=== PATIENT | male | born 1970 | race Two or more races ===

== ENCOUNTER 2018-11-24 02:28 | Inpatient (IN) | payer MEDICAID ==
[~2018-11-24] VITALS: Ht 167.6 cm; Wt 68.4 kg
[~2018-11-24 02:28] MED LIST: LEVE250T28 PO; METO25TA35 PO
--- NOTE | 2018-11-24 02:51 | NUR ---
PT. TO CT VIA [facility].
--- NOTE | 2018-11-24 02:53 | NUR ---
[place]; FOUND IN THE STREET. PT. NOTED TO HAVE DRIED BLOOD IN MOUTH AND URINE INCONTINENCE. PT. IS ITALIAN SPEAKING ONLY. PT. UNABLE TO COMMUNICATE EVEN WITH TRIMMING MACHINE OPERATOR. PT. A&O TO SELF ONLY. THOMAS X 4 EQUALLY. BRUISING NOTED TO TONGUE. PT. WAS UNABLE TO ANSWER QUESTIONS USING TRIMMING MACHINE OPERATOR # [id number]. PT. WAS ABLE TO ANSWER QUESTIONS BY ITALIAN SPEAKING STAFF AND PT. DENIES ANY MEDICAL HX, ETOH USE TONIGHT, DRUG USE, OR RECOLLECTION OF EVENTS. PT. DENIES PAIN/DISCOMFORT. WHEN LOOKIG BACK IN THE CHART HISTORY PT. HAS BEEN ADMITTED FOR SEZIURES A COUPLE TIMES IN THE PAST. PT. HAD EKG COMPLETED ON ARRIVAL. CONTINUOUS PULSE OX, B/P, AND HEART MONITORS APPLIED. IV IN PLACE BY KAE. CALL LIGHT IN REACH. ALL SAFETY MEASURES OBSERVED.
--- NOTE | 2018-11-24 03:03 | NUR ---
SEZIURE PADS/PRECAUTIONS IN PLACE.
[2018-11-24 03:10] LABS: BASOPHILS # (AUTO) 0.02 x10^3/uL (0-0.1); BASOPHILS % (AUTO) 0 % (0-1); EOSINOPHILS % (AUTO) 0 % (1-7); LYMPHOCYTES # (AUTO) 0.35 x10^3/uL (1-3.4); LYMPHOCYTES % (AUTO) 6 % (22-44); MD NO; MEAN CORPUSCULAR HEMOGLOBIN 32.6 pg (27.5-34.5); MEAN CORPUSCULAR HGB CONC 32.3 g/dL (33.2-36.2); MEAN CORPUSCULAR VOLUME 100.8 fL (81-97); MEAN PLATELET VOLUME 7.6 fL (7.4-10.4); MONOCYTES # (AUTO) 0.44 x10^3/uL (0.2-0.8); MONOCYTES % (AUTO) 8 % (2-9); NEUTROPHILS # (AUTO) 4.79 x10^3/uL (1.8-6.8); NEUTROPHILS % (AUTO) 86 % (42-75); PLATELET COUNT 121 x10^3/uL (130-400); RED BLOOD COUNT 3.67 x10^6/uL (4.38-5.82); RED CELL DISTRIBUTION WIDTH 17.1 % (9.4-14.8)
[2018-11-24] MEDS ORDERED: ACETAMINOPHEN 500 MG TABLET ONE (03:16)
[2018-11-24 03:22] LABS: ALANINE AMINOTRANSFERASE 58 U/L (12-78); ALBUMIN 3.3 g/dL (3.4-5.0); ANION GAP 12 mmol/L (5-15); CALCIUM 8.9 mg/dL (8.5-10.1); CHLORIDE 102 mmol/L (98-107); CREATININE 1.25 mg/dL (0.7-1.3)
[2018-11-24 03:27] LABS: ALKALINE PHOSPHATASE 133 U/L (45-117); BILIRUBIN,TOTAL 0.8 mg/dL (0.2-1.0); TOTAL PROTEIN 8.2 g/dL (6.4-8.2); TROPONIN I < 0.015 ng/mL (0.000-0.045)
[2018-11-24] MEDS ORDERED: ACETAMINOPHEN 500 MG TABLET PO ONE (03:30)
--- NOTE | 2018-11-24 03:34 | NUR ---
BLOOD CULTURES DRAWN X 2. PT. O2 SAT DROPEED TO 80'S; PLACED ON 2L O2 VIA NC WITH INCREASE TO 97%. NADN. PT. HAS TV ON AND APPEARS TO BE WATCHING TV. PT. CONTINUES TO THOMAS X 4. NO NEURO CHANGES NOTED. ALL SAFETY MEASURES/SEZIURE PRECATUIONS REMAIN IN PLACE. CALL LIGHT IN REACH.
--- NOTE | 2018-11-24 04:17 | NUR ---
THIS RN AND ERP ATTEMPED TO RE-ASSESS PT. WITH ACCREDITED LEGAL SECRETARY; PT. UNABLE TO COMMUNICATE WITH STAFF VIA [facility](PT. JUST LOOKS AROUND THE ROOM AND APPEAERS TO BE CONFUSED WITH THIS). [place]ELI SPEAKING STAFF MEMBER IN TO HELP INTERPRET. PT. REMAINS ONLY A&O TO SELF ONLY BUT KNOWS HE IS IN [place]. NO CHANGE FROM INITIAL ASSESSMENT.
[2018-11-24] MEDS ORDERED: PIPERACILLIN/TAZO/PMX 3.375GM 50 ML IVPB ONE (04:30)
[2018-11-24] MEDS ORDERED: SODIUM CHLORIDE 0.9% 1,000ML IVBOLUS ONE (04:30)
[2018-11-24] MEDS ORDERED: VANCOMYCIN PER PHARMACY IV ONE (04:30)
[2018-11-24] MEDS ORDERED: VANCOMYCIN 1,400 MG in SODIUM CHLORIDE 0.9% 250 ML IV ONE (04:30)
--- NOTE | 2018-11-24 04:43 | NUR ---
HANDED PT. URINAL; PT. ATTEMPTED TO VOID VIA URINAL BUT WAS UNABLE. URINAL REMAINS AT BS; PT. DID NOD HEAD FOR UNDERSTANDING OF NEED FOR URINE SAMPLE.
[2018-11-24] MEDS ORDERED: PIPERACILLIN/TAZO/PMX 3.375GM 50 ML ONE (04:49)
--- NOTE | 2018-11-24 05:07 | NUR ---
IVF AND IV ABX INFUSING PER ORDER. PT. STATUS REMAINS UNCHANCED FROM INITIAL ASSESSMENT.
--- NOTE | 2018-11-24 05:20 | NUR ---
REPORT TO GAURAV COURTNEY. FLOOR READY FOR PT. TRANSPORT.
[2018-11-24 07:59] VITALS: BP 138/78
[2018-11-24] MEDS: SODIUM CHLORIDE 0.9% 1,000 ML IV SCH (11:47)
[2018-11-24] MEDS ORDERED: ONDANSETRON ODT 4 MG PO PRN (12:00)
[2018-11-24] MEDS ORDERED: LORazepam 2 MG/ML, 1ML IV PRN ×5 (12:00)
[2018-11-24] MEDS ORDERED: POLYETHYLENE GLYCOL 17 GM PACKET PO PRN (12:00)
[2018-11-24] MEDS ORDERED: DOCUSATE 100 MG CAPSULE PO PRN (12:00)
[2018-11-24] MEDS ORDERED: hydrALAzine 20 MG/ML, 1ML IVPush PRN (12:00)
[2018-11-24] MEDS ORDERED: LORazepam 0.5MG TABLET PO PRN (12:00)
[2018-11-24] MEDS ORDERED: ONDANSETRON 2MG/ML, 2ML IVPush PRN (12:00)
[2018-11-24] MEDS: MULTIVITAMIN 1 TABLET PO SCH (12:00)
[2018-11-24] MEDS ORDERED: POTASSIUM CHLORIDE 40 MEQ in SODIUM CHLORIDE 0.9% 500 ML IV ONE (12:00)
[2018-11-24] MEDS ORDERED: PROMETHAZINE 25 MG/ML, 1ML IM PRN (12:00)
[2018-11-24] MEDS ORDERED: morphine SULFATE 10 MG/ML, 1ML IVPush PRN (12:00)
[2018-11-24] MEDS ORDERED: BISACODYL 10 MG SUPP PR PRN (12:00)
[2018-11-24] MEDS ORDERED: LORazepam 1MG TABLET PO PRN ×4 (12:00)
[2018-11-24 12:53] LABS: FREE T4 (FREE THYROXINE) 0.92 ng/dL (0.76-1.46); THYROID STIMULATING HORMONE 1.79 mIU/L (0.358-3.740)
[2018-11-24 13:09] LABS: HEMOGLOBIN A1C 5.1 % (4.2-6.3)
[2018-11-24 13:56] VITALS: BP 129/78
[2018-11-24] MEDS: CEFTRIAXONE PMX 2GM/50ML 50 ML IV SCH (15:13)
[2018-11-24 15:47] LABS: AMPHETAMINE SCREEN, URINE Negative (Negative); BARBITURATE SCREEN, URINE Negative (Negative); BENZODIAZEPINE SCREEN, URINE Negative (Negative); CANNABINOID SCREEN, URINE Negative (Negative); COCAINE SCREEN, URINE Negative (Negative); METHADONE SCREEN, URINE Negative (Negative); OPIATE SCREEN, URINE Negative (Negative)
[2018-11-24] MEDS: LACTULOSE 10 GM/15 ML UDC PO SCH ×2 (16:56→21:33)
[2018-11-24] MEDS: METOPROLOL TARTRATE 25 MG TABLET PO SCH (16:57)
[2018-11-24] MEDS: HEPARIN 5,000 UNITS/ML, 1ML SQ SCH (16:58)
[2018-11-24 19:09] VITALS: BP 132/80
[2018-11-24 19:18] LABS: MICROSCOPIC AUTO
[2018-11-24 19:25] LABS: CULTURE INDICATED? YES
[2018-11-24] MEDS: LEVETIRACETAM 500 MG TABLET PO SCH (21:33)
[2018-11-25 00:50] VITALS: BP 125/77
[2018-11-25] MEDS: HEPARIN 5,000 UNITS/ML, 1ML SQ SCH ×3 (01:13→17:00)
[2018-11-25] MEDS: SODIUM CHLORIDE 0.9% 1,000 ML IV SCH (01:14)
[2018-11-25 05:01] LABS: BASOPHILS # (AUTO) 0.05 x10^3/uL (0-0.1); BASOPHILS % (AUTO) 2 % (0-1); EOSINOPHILS # (AUTO) 0.14 x10^3/uL (0-0.4); EOSINOPHILS % (AUTO) 4 % (1-7); LYMPHOCYTES # (AUTO) 0.68 x10^3/uL (1-3.4); LYMPHOCYTES % (AUTO) 21 % (22-44); MD NO; MEAN CORPUSCULAR HGB CONC 33.4 g/dL (33.2-36.2); MEAN CORPUSCULAR VOLUME 101.9 fL (81-97); MONOCYTES # (AUTO) 0.42 x10^3/uL (0.2-0.8); MONOCYTES % (AUTO) 13 % (2-9); NEUTROPHILS # (AUTO) 1.91 x10^3/uL (1.8-6.8); NEUTROPHILS % (AUTO) 60 % (42-75); PLATELET COUNT 100 x10^3/uL (130-400); RED BLOOD COUNT 3.29 x10^6/uL (4.38-5.82); RED CELL DISTRIBUTION WIDTH 16.7 % (9.4-14.8)
[2018-11-25 05:08] LABS: ALBUMIN 2.7 g/dL (3.4-5.0); ANION GAP 9 mmol/L (5-15); CALCIUM 7.9 mg/dL (8.5-10.1); CHLORIDE 109 mmol/L (98-107)
[2018-11-25 05:11] LABS: ALANINE AMINOTRANSFERASE 47 U/L (12-78); ALKALINE PHOSPHATASE 94 U/L (45-117); BILIRUBIN,TOTAL 0.8 mg/dL (0.2-1.0); CHOL/HDL RATIO 2.2; CHOLESTEROL, TOTAL 168 mg/dL (140-239); HDL CHOL % 46 % (26-37); HDL CHOLESTEROL (DIRECT) 78 mg/dL (40-60); LDL CHOLESTEROL,CALCULATED 69 mg/dL (54-169); LDL/HDL RATIO 0.9 (0.5-3.0); TOTAL PROTEIN 6.9 g/dL (6.4-8.2); TRIGLYCERIDES 104 mg/dL (50-200); VLDL CHOLESTEROL 21 mg/dL (0-25)
[2018-11-25 06:10] VITALS: BP 143/87
[2018-11-25] MEDS: METOPROLOL TARTRATE 25 MG TABLET PO SCH ×2 (06:13→19:55)
[2018-11-25] MEDS: LACTULOSE 10 GM/15 ML UDC PO SCH ×2 (11:22→20:02)
[2018-11-25] MEDS: LEVETIRACETAM 500 MG TABLET PO SCH ×2 (11:22→20:02)
[2018-11-25] MEDS: MULTIVITAMIN 1 TABLET PO SCH (11:22)
[2018-11-25] MEDS: CEFTRIAXONE PMX 2GM/50ML 50 ML IV SCH (11:23)
[2018-11-25 13:48] VITALS: BP 117/72
[2018-11-25] MEDS: OXYcodone IR 5MG TABLET PO PRN (15:23)
[2018-11-25] MEDS: NS + 20MEQ KCL 1,000 ML IV SCH ×2 (15:23→23:57)
[2018-11-25 18:59] VITALS: BP 129/77
[2018-11-26 01:28] VITALS: BP 155/96
[2018-11-26] MEDS: HEPARIN 5,000 UNITS/ML, 1ML SQ SCH ×3 (01:35→18:07)
[2018-11-26] MEDS ORDERED: OMNIPAQUE 350 MG/ML, 100ML BOTTLE ONE (03:13)
[2018-11-26] MEDS ORDERED: PHENOBARBITAL SODIUM 640 MG in SODIUM CHLORIDE 0.9% 50 ML IVPB ONE (06:00)
[2018-11-26] MEDS: METOPROLOL TARTRATE 25 MG TABLET PO SCH ×2 (06:00→18:00)
[2018-11-26] MEDS ORDERED: PHARMACY INSTRUCTION MC PRN ×4 (06:00)
[2018-11-26 06:48] LABS: BASOPHILS # (AUTO) 0.04 x10^3/uL (0-0.1); BASOPHILS % (AUTO) 1 % (0-1); EOSINOPHILS # (AUTO) 0.15 x10^3/uL (0-0.4); EOSINOPHILS % (AUTO) 4 % (1-7); LYMPHOCYTES # (AUTO) 0.98 x10^3/uL (1-3.4); LYMPHOCYTES % (AUTO) 23 % (22-44); MD NO; MEAN CORPUSCULAR HEMOGLOBIN 33.9 pg (27.5-34.5); MEAN CORPUSCULAR HGB CONC 33.4 g/dL (33.2-36.2); MEAN CORPUSCULAR VOLUME 101.5 fL (81-97); MEAN PLATELET VOLUME 7.9 fL (7.4-10.4); MONOCYTES % (AUTO) 14 % (2-9); NEUTROPHILS # (AUTO) 2.56 x10^3/uL (1.8-6.8); NEUTROPHILS % (AUTO) 59 % (42-75); PLATELET COUNT 149 x10^3/uL (130-400); RED BLOOD COUNT 3.68 x10^6/uL (4.38-5.82); RED CELL DISTRIBUTION WIDTH 16.6 % (9.4-14.8)
[2018-11-26 06:56] LABS: ALANINE AMINOTRANSFERASE 53 U/L (12-78); ALBUMIN 3.2 g/dL (3.4-5.0); ANION GAP 13 mmol/L (5-15); CALCIUM 8.6 mg/dL (8.5-10.1); CHLORIDE 107 mmol/L (98-107); CREATININE 1.09 mg/dL (0.7-1.3)
[2018-11-26 06:58] LABS: ALKALINE PHOSPHATASE 106 U/L (45-117); BILIRUBIN,TOTAL 0.8 mg/dL (0.2-1.0); TOTAL PROTEIN 8.1 g/dL (6.4-8.2)
[2018-11-26] MEDS ORDERED: MAGNESIUM SULFATE PMX 2GM/50ML 50 ML IV ONE (07:30)
[2018-11-26] MEDS: ERGOCALCIFEROL 50,000 UNIT CAPSULE PO SCH (09:00)
[2018-11-26] MEDS ORDERED: ZIPRASIDONE 20 MG INJ IM ONE (09:00)
[2018-11-26] MEDS: LEVETIRACETAM 500 MG TABLET PO SCH ×2 (09:00→21:00)
[2018-11-26] MEDS: MULTIVITAMIN 1 TABLET PO SCH (09:00)
[2018-11-26] MEDS: CEFTRIAXONE PMX 1GM/50ML 50 ML IV SCH (09:47)
[2018-11-26] MEDS ORDERED: PHENOBARBITAL SODIUM IV ONE (11:30)
[2018-11-26] MEDS ORDERED: SODIUM CHLORIDE 0.9% IV ONE (11:30)
[2018-11-26] MEDS: THIAMINE 200 MG in SODIUM CHLORIDE 0.9% 50 ML IV SCH (14:14)
[2018-11-26] MEDS ORDERED: ZIPRASIDONE 20 MG INJ IM PRN (15:30)
[2018-11-26] MEDS: NS + 20MEQ KCL 1,000 ML IV SCH (15:40)
[2018-11-26] MEDS: PHENOBARBITAL SODIUM 65 MG/ML, 1ML IM SCH (18:08)
[2018-11-27] MEDS: NS + 20MEQ KCL 1,000 ML IV SCH ×3 (00:48→23:38)
[2018-11-27] MEDS: HEPARIN 5,000 UNITS/ML, 1ML SQ SCH ×3 (00:50→18:05)
[2018-11-27 05:07] LABS: ALBUMIN 2.8 g/dL (3.4-5.0); ANION GAP 11 mmol/L (5-15); CALCIUM 8.4 mg/dL (8.5-10.1); CHLORIDE 112 mmol/L (98-107)
[2018-11-27 05:12] LABS: ALANINE AMINOTRANSFERASE 60 U/L (12-78); ALKALINE PHOSPHATASE 88 U/L (45-117); BILIRUBIN,TOTAL 0.8 mg/dL (0.2-1.0); CREATININE 0.75 mg/dL (0.7-1.3); TOTAL PROTEIN 7.3 g/dL (6.4-8.2)
[2018-11-27] MEDS: METOPROLOL TARTRATE 25 MG TABLET PO SCH ×2 (05:16→18:04)
[2018-11-27] MEDS: PHENOBARBITAL SODIUM 65 MG/ML, 1ML IM SCH ×2 (05:16→18:04)
[2018-11-27] MEDS ORDERED: POTASSIUM CHLORIDE 20 MEQ TAB.ER.PRT PO ONE (07:30)
[2018-11-27] MEDS: CEFTRIAXONE PMX 1GM/50ML 50 ML IV SCH (07:52)
[2018-11-27] MEDS: MULTIVITAMIN 1 TABLET PO SCH (09:29)
[2018-11-27] MEDS: THIAMINE 200 MG in SODIUM CHLORIDE 0.9% 50 ML IV SCH (09:29)
[2018-11-27] MEDS: LEVETIRACETAM 500 MG TABLET PO SCH ×2 (09:29→22:20)
[2018-11-27] MEDS: ERGOCALCIFEROL 50,000 UNIT CAPSULE PO SCH (09:29)
[2018-11-27 15:00] VITALS: BP 151/88
[2018-11-27 20:00] VITALS: BP 121/73
[2018-11-27] MEDS: CIPROFLOXACIN 500 MG TABLET PO SCH (22:20)
[2018-11-28 00:58] VITALS: BP 130/79
[2018-11-28] MEDS: HEPARIN 5,000 UNITS/ML, 1ML SQ SCH ×3 (01:19→18:18)
[2018-11-28] MEDS: PHENOBARBITAL SODIUM 65 MG/ML, 1ML IM SCH (05:59)
[2018-11-28] MEDS: METOPROLOL TARTRATE 25 MG TABLET PO SCH ×2 (06:01→18:19)
[2018-11-28 07:11] VITALS: BP 135/79
[2018-11-28] MEDS: LEVETIRACETAM 500 MG TABLET PO SCH ×2 (08:27→21:26)
[2018-11-28] MEDS: ERGOCALCIFEROL 50,000 UNIT CAPSULE PO SCH (08:27)
[2018-11-28] MEDS: MULTIVITAMIN 1 TABLET PO SCH (08:27)
[2018-11-28] MEDS: CIPROFLOXACIN 500 MG TABLET PO SCH ×2 (08:27→21:26)
[2018-11-28] MEDS: THIAMINE 200 MG in SODIUM CHLORIDE 0.9% 50 ML IV SCH (09:23)
[2018-11-28 13:23] VITALS: BP 134/80
[2018-11-28] MEDS: NS + 20MEQ KCL 1,000 ML IV SCH (18:18)
[2018-11-28] MEDS: PHENOBARBITAL 20 MG/5 ML ORAL SOL PO SCH (18:19)
[2018-11-28 21:05] VITALS: BP 136/84
[2018-11-29] MEDS: HEPARIN 5,000 UNITS/ML, 1ML SQ SCH ×3 (02:45→18:10)
[2018-11-29] MEDS: NS + 20MEQ KCL 1,000 ML IV SCH (04:25)
[2018-11-29 04:30] VITALS: BP 130/83
[2018-11-29 06:12] VITALS: BP 131/86
[2018-11-29] MEDS: METOPROLOL TARTRATE 25 MG TABLET PO SCH ×2 (06:14→18:11)
[2018-11-29] MEDS: PHENOBARBITAL 20 MG/5 ML ORAL SOL PO SCH ×2 (06:15→18:10)
[2018-11-29 07:15] VITALS: BP 122/61
[2018-11-29] MEDS: ERGOCALCIFEROL 50,000 UNIT CAPSULE PO SCH (08:15)
[2018-11-29] MEDS: MULTIVITAMIN 1 TABLET PO SCH (08:15)
[2018-11-29] MEDS: LEVETIRACETAM 500 MG TABLET PO SCH ×2 (08:15→21:47)
[2018-11-29] MEDS: CIPROFLOXACIN 500 MG TABLET PO SCH ×2 (08:15→21:48)
[2018-11-29] MEDS: THIAMINE 200 MG in SODIUM CHLORIDE 0.9% 50 ML IV SCH (09:00)
[2018-11-29 12:10] VITALS: BP 129/81
[2018-11-29 20:18] VITALS: BP 121/80
[2018-11-30 01:21] VITALS: BP 138/84
[2018-11-30] MEDS: HEPARIN 5,000 UNITS/ML, 1ML SQ SCH ×3 (03:08→18:00)
[2018-11-30 05:45] LABS: BASOPHILS # (AUTO) 0.06 x10^3/uL (0-0.1); BASOPHILS % (AUTO) 2 % (0-1); CHLORIDE 106 mmol/L (98-107); EOSINOPHILS % (AUTO) 10 % (1-7); LYMPHOCYTES # (AUTO) 0.95 x10^3/uL (1-3.4); LYMPHOCYTES % (AUTO) 31 % (22-44); MD NO; MEAN CORPUSCULAR HEMOGLOBIN 34.5 pg (27.5-34.5); MEAN CORPUSCULAR HGB CONC 33.6 g/dL (33.2-36.2); MEAN CORPUSCULAR VOLUME 102.6 fL (81-97); MEAN PLATELET VOLUME 8.5 fL (7.4-10.4); MONOCYTES # (AUTO) 0.57 x10^3/uL (0.2-0.8); MONOCYTES % (AUTO) 18 % (2-9); NEUTROPHILS # (AUTO) 1.24 x10^3/uL (1.8-6.8); NEUTROPHILS % (AUTO) 40 % (42-75); PLATELET COUNT 216 x10^3/uL (130-400); RED BLOOD COUNT 3.37 x10^6/uL (4.38-5.82); RED CELL DISTRIBUTION WIDTH 15.8 % (9.4-14.8)
[2018-11-30 05:59] LABS: ALANINE AMINOTRANSFERASE 88 U/L (12-78); ALBUMIN 2.9 g/dL (3.4-5.0); ALKALINE PHOSPHATASE 94 U/L (45-117); ANION GAP 7 mmol/L (5-15); BILIRUBIN,TOTAL 0.4 mg/dL (0.2-1.0); CALCIUM 8.8 mg/dL (8.5-10.1); CREATININE 0.75 mg/dL (0.7-1.3); TOTAL PROTEIN 7.1 g/dL (6.4-8.2)
[2018-11-30 06:19] VITALS: BP 130/86
[2018-11-30] MEDS: METOPROLOL TARTRATE 25 MG TABLET PO SCH ×2 (06:21→18:00)
[2018-11-30] MEDS: PHENOBARBITAL 20 MG/5 ML ORAL SOL PO SCH ×2 (06:21→18:01)
[2018-11-30 07:34] VITALS: BP 120/75
[2018-11-30 08:43] LABS: INTERNATIONAL NORMALIZED RATIO 1.05 (0.93-1.1)
[2018-11-30] MEDS: ERGOCALCIFEROL 50,000 UNIT CAPSULE PO SCH (09:00)
[2018-11-30] MEDS: THIAMINE 200 MG in SODIUM CHLORIDE 0.9% 50 ML IV SCH (09:00)
[2018-11-30] MEDS: MULTIVITAMIN 1 TABLET PO SCH (09:01)
[2018-11-30] MEDS: LEVETIRACETAM 500 MG TABLET PO SCH ×2 (09:01→20:37)
[2018-11-30] MEDS: CIPROFLOXACIN 500 MG TABLET PO SCH ×2 (09:01→20:38)
[2018-11-30] MEDS ORDERED: POTASSIUM CHLORIDE 20 MEQ TAB.ER.PRT PO ONE (11:30)
[2018-11-30 13:30] VITALS: BP 134/85
[2018-11-30 19:03] VITALS: BP 135/84
[2018-11-30] MEDS: OXYcodone IR 5MG TABLET PO PRN (23:58)
[2018-12-01 01:31] VITALS: BP 153/83
[2018-12-01] MEDS: HEPARIN 5,000 UNITS/ML, 1ML SQ SCH ×3 (02:30→17:47)
[2018-12-01] MEDS: METOPROLOL TARTRATE 25 MG TABLET PO SCH ×2 (05:56→17:46)
[2018-12-01] MEDS: PHENOBARBITAL 20 MG/5 ML ORAL SOL PO SCH ×2 (06:02→17:46)
[2018-12-01 07:17] VITALS: BP 119/80
[2018-12-01] MEDS: MULTIVITAMIN 1 TABLET PO SCH (08:29)
[2018-12-01] MEDS: CIPROFLOXACIN 500 MG TABLET PO SCH ×2 (08:29→20:16)
[2018-12-01] MEDS: LEVETIRACETAM 500 MG TABLET PO SCH ×2 (08:29→20:16)
[2018-12-01] MEDS: ERGOCALCIFEROL 50,000 UNIT CAPSULE PO SCH (08:29)
[2018-12-01 09:37] LABS: INTERNATIONAL NORMALIZED RATIO 1.01 (0.93-1.1); PROTHROMBIN TIME 10.6 Seconds (9.6-11.5)
[2018-12-01 09:41] LABS: ALANINE AMINOTRANSFERASE 118 U/L (12-78); ALBUMIN 3.3 g/dL (3.4-5.0); ANION GAP 6 mmol/L (5-15); CALCIUM 9.3 mg/dL (8.5-10.1); CHLORIDE 104 mmol/L (98-107)
[2018-12-01 09:43] LABS: ALKALINE PHOSPHATASE 103 U/L (45-117); BILIRUBIN,TOTAL 0.4 mg/dL (0.2-1.0); CREATININE 0.89 mg/dL (0.7-1.3); TOTAL PROTEIN 8.2 g/dL (6.4-8.2)
[2018-12-01 13:28] VITALS: BP 117/76
[2018-12-01 19:25] VITALS: BP 129/80
[2018-12-02 01:55] VITALS: BP 131/73
[2018-12-02] MEDS: HEPARIN 5,000 UNITS/ML, 1ML SQ SCH (02:30)
[2018-12-02] MEDS ORDERED: THIA100T67 PO (05:58)
[2018-12-02] MEDS ORDERED: MULT1TAB60 PO (05:58)
[2018-12-02] MEDS: PHENOBARBITAL 20 MG/5 ML ORAL SOL PO SCH (06:13)
[2018-12-02] MEDS: METOPROLOL TARTRATE 25 MG TABLET PO SCH (06:13)
[2018-12-02 07:25] VITALS: BP 130/82
[2018-12-02] MEDS: LEVETIRACETAM 500 MG TABLET PO SCH (08:25)
[2018-12-02] MEDS: CIPROFLOXACIN 500 MG TABLET PO SCH (08:25)
[2018-12-02] MEDS: MULTIVITAMIN 1 TABLET PO SCH (08:25)
[2018-12-02] MEDS: ERGOCALCIFEROL 50,000 UNIT CAPSULE PO SCH (08:25)
[2018-12-02] MEDS ORDERED: ERGO500017 PO (09:01)
[2018-12-02 10:07] LABS: INTERNATIONAL NORMALIZED RATIO 1.02 (0.93-1.1); PROTHROMBIN TIME 10.7 Seconds (9.6-11.5)
== END 2018-12-02 10:10 | disposition home or self-care (01) | DRG 871 ==
LOC: ED 03:34 → EDIP 04:34 → 3NE 07:29 → CCU 11-26 05:41 → 3NE 11-27 14:51 → DCLOUNGE 12-02 09:55
PROVIDERS: ADMIT Internal Medicine; ATTEND Internal Medicine
DX: A41.9 Sepsis, unspecified organism (principal); E43 Unspecified severe protein-calorie malnutrition; G93.41 Metabolic encephalopathy; E51.2 Wernicke's encephalopathy; E72.20 Disorder of urea cycle metabolism, unspecified; F10.239 Alcohol dependence with withdrawal, unspecified; N25.81 Secondary hyperparathyroidism of renal origin; N39.0 Urinary tract infection, site not specified; B96.20 Unspecified Escherichia coli [E. coli] as the cause of diseases classified elsewhere; D69.59 Other secondary thrombocytopenia; Z68.24 Body mass index [BMI] 24.0-24.9, adult; E55.9 Vitamin D deficiency, unspecified; E87.6 Hypokalemia; G40.909 Epilepsy, unspecified, not intractable, without status epilepticus; I10 Essential (primary) hypertension; K70.10 Alcoholic hepatitis without ascites; K72.90 Hepatic failure, unspecified without coma; K76.0 Fatty (change of) liver, not elsewhere classified; Z87.820 Personal history of traumatic brain injury
CPT/HCPCS: 36415; 70450; 71045; 74177; 76705; 80053; 80061; 80307; 81001; 82140; 82306; 82550; 82607; 83036; 83605; 83735; 83970; 84100; 84145; 84439; 84443; 84484; 85025; 85610; 87040; 87077; 87081; 87086; 87186; 93005; 96365; 96367; G0378; J0696; J1644; J2543; J2560; J3370; J3411; J3480; J3486; Q0162; Q9967; J0360; J2060; J3475; J7030; J7040; J7050